=== PATIENT | male | born 1975 | race Hispanic/Latino ===

== ENCOUNTER 2016-08-12 13:51 | Emergency (ER) | payer BC ==
[2016-08-12 14:17] VITALS: BP 111/73
[2016-08-12 17:47] LABS: Hematocrit 43.5 % (35.5-45.6); Hemoglobin 14.5 gm/dl (11.8-15.2); Mean Corpuscular HGB Conc 33 % (32-34); Mean Corpuscular Hemoglobin 30 pg (28-32); Mean Corpuscular Volume 90 fl (84-94); Platelet Count 134 K/mm3 (140-440); Red Blood Count 4.83 M/mm3 (3.65-5.03); Red Cell Distribution Width 13.7 % (13.2-15.2); White Blood Count 7.6 K/mm3 (4.5-11.0)
--- NOTE | 2016-08-12 19:19 | Emergency Department Report ---
ED Fever HPI - General Chief Complaint: Fever Stated Complaint: FEVER Time Seen by Provider: 08/12/16 17:23 Source: patient, RN notes reviewed Exam Limitations: no limitations - History of Present Illness Initial Comments: Patient presents with complaint of headache and fever off and on 2 days. He states his headache and fever started after eating at [employer] on Friday. Patient also complains of a sore throat and dry cough. He states he has been taking Tylenol. Timing/Duration: intermittent Fever Severity/Quality: greater than 100.5 F (admits to 101) Associated Symptoms: cough (mild), headache, sore throat ED Review of Systems ROS: Stated complaint: FEVER Other details as noted in HPI Constitutional: fever. denies: chills Eyes: denies: eye pain, eye discharge, vision change ENT: throat pain. denies: ear pain Respiratory: cough (mild). denies: shortness of breath, wheezing Cardiovascular: denies: chest pain, palpitations Endocrine: no symptoms reported Gastrointestinal: denies: abdominal pain, nausea, diarrhea Genitourinary: denies: urgency, dysuria Musculoskeletal: denies: back pain, joint swelling, arthralgia Skin: denies: rash, lesions Neurological: headache. denies: weakness, paresthesias ED Past Medical Hx - Past Medical History Previous Medical History?: No - Surgical History Past Surgical History?: No - Social History Smoking Status: Never Smoker Substance Use Type: None - Medications Home Medications: Home Medications Medication Instructions Recorded Confirmed Last Taken Type Ibuprofen [Motrin 800 MG tab] 800 mg PO BID PRN #14 tablet 08/12/16 Unknown Rx ED Physical Exam - General Limitations: No Limitations General appearance: alert, in no apparent distress - Head Head exam: Present: atraumatic, normocephalic - Eye Eye exam: Present: normal appearance, PERRL, EOMI - ENT ENT exam: Present: mucous membranes moist, TM's normal bilaterally - Expanded ENT Exam Expanded Mouth exam: Present: normal external inspection Teeth exam: Present: normal inspection Throat exam: Positive: normal inspection - Neck Neck exam: Present: normal inspection, full ROM, lymphadenopathy - Respiratory Respiratory exam: Present: normal lung sounds bilaterally. Absent: respiratory distress - Cardiovascular Cardiovascular Exam: Present: regular rate, normal rhythm. Absent: systolic murmur, diastolic murmur, rubs, gallop - GI/Abdominal GI/Abdominal exam: Present: soft, normal bowel sounds - Extremities Exam Extremities exam: Present: normal inspection, full ROM - Back Exam Back exam: Present: normal inspection, full ROM - Neurological Exam Neurological exam: Present: alert, oriented X3 - Psychiatric Psychiatric exam: Present: normal affect, normal mood - Skin Skin exam: Present: warm, dry, intact, normal color. Absent: rash - Other Other exam information: BMI low ED Course Vital Signs 08/12/16 14:14 Temperature 98.7 F Pulse Rate 88 Respiratory 16 Rate Blood Pressure 111/73 O2 Sat by Pulse 100 Oximetry ED Medical Decision Making - Lab Data Result diagrams: 08/12/16 17:41 08/12/16 19:18 - Medical Decision Making Patient presents with headache and fever off and on 2 days. He states he started these symptoms after eating at a fast food restaurant called [employer]. He does admit to sore throat and dry cough. CBC, and hepatitis panel is negative. This appears to be a viral syndrome. I will give him ibuprofen 800 mg twice a day. I will advise him to follow up with primary care physician if symptoms do not resolve. - Differential Diagnosis common cold, hepatitis a, uri Critical Care Time: No Critical care attestation.: If time is entered above; I have spent that time in minutes in the direct care of this critically ill patient, excluding procedure time. ED Disposition Clinical Impression: Viral syndrome Disposition: DISCHARGED TO HOME OR SELFCARE Is pt being admited?: No Does the pt Need Aspirin: No Condition: Stable Instructions: Viral Syndrome (ED) Prescriptions: Ibuprofen [Motrin 800 MG tab] 800 mg PO BID PRN #14 tablet PRN Reason: fever, headache Forms: Work/School Release Form(ED) Time of Disposition: 20:24
[2016-08-12 19:28] LABS: Basophils % (Manual) 0 % (0.0-1.8); Blastocytes % (Manual) 0 %; Eosinophils % (Manual) 0 % (0.0-4.3)
[2016-08-12 19:30] LABS: Anisocytosis 1+; Diff Status Complete; Platelet Estimate Consistent w Auto
[2016-08-12 19:55] LABS: Alanine Aminotransferase 15 units/L (7-56); Albumin 4.7 g/dL (3.9-5); Albumin/Globulin Ratio 1.5 %; Alkaline Phosphatase 49 units/L (35-129); Bilirubin,Total 0.4 mg/dL (0.1-1.2); Blood Urea Nitrogen 8 mg/dL (9-20); Calcium 9.5 mg/dL (8.4-10.2); Carbon Dioxide 28 mmol/L (22-30); Chloride 98.2 mmol/L (98-107); Glucose 92 mg/dL (75-100); Potassium 4.4 mmol/L (3.6-5.0); Sodium 139 mmol/L (137-145); Total Protein 7.8 g/dL (6.3-8.2)
[2016-08-12 20:29] LABS: Anion Gap 17 mmol/L
== END 2016-08-12 20:29 | disposition home or self-care (01) ==
LOC: ED 13:51
DX: B34.9 Viral infection, unspecified (principal)
CPT/HCPCS: 36415; 80053; 80074; 85007; 85025; 87400; 99283

== ENCOUNTER 2016-11-01 01:46 | Emergency (ER) | payer BC ==
[2016-11-01] MEDS ORDERED: TYLENOL ONE (02:10)
[2016-11-01] MEDS ORDERED: MOTRIN PO ONE ×2 (02:31→02:50)
[2016-11-01] MEDS ORDERED: TYLENOL PO ONE (02:50)
[2016-11-01 03:19] LABS: BUN/Creatinine Ratio 18.75; Blood Urea Nitrogen 15 mg/dL (9-20); Calcium 9.7 mg/dL (8.4-10.2); Carbon Dioxide 26 mmol/L (22-30); Glucose 118 mg/dL (75-100); Magnesium 2.1 mg/dL (1.7-2.3)
[2016-11-01 03:20] LABS: Anion Gap 15 mmol/L; Potassium 4.3 mmol/L (3.6-5.0); Sodium 140 mmol/L (137-145)
[2016-11-01 03:29] LABS: Eosinophils % (Auto) 2.9 % (0.0-4.3); Hemoglobin 13.7 gm/dl (11.8-15.2); Mean Corpuscular HGB Conc 33 % (32-34); Mean Corpuscular Hemoglobin 30 pg (28-32); Mean Corpuscular Volume 89 fl (84-94); Platelet Count 166 K/mm3 (140-440); Red Blood Count 4.61 M/mm3 (3.65-5.03); Red Cell Distribution Width 13.4 % (13.2-15.2)
[2016-11-01 07:35] VITALS: BP 101/66
--- NOTE | 2016-11-01 08:15 | Emergency Department Report ---
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 Denies any direct trauma no chest pain no shortness of breath no palpitations no nausea no vomiting. No rash reported by patient. Patient is awake alert and oriented 3 does not appear in acute distress appears calm states that Motrin given in triage is significantly helped his pain. Patient does not appear short of breath no wheezing or stridor on exam. Patient states that pain felt slightly spastic in his right upper shoulder region. ED Review of Systems ROS: Stated complaint: BACK PAIN Other details as noted in HPI ED Past Medical Hx - Past Medical History Previous Medical History?: Yes Additional medical history: Back injury from a fall years ago - Surgical History Past Surgical History?: No - Social History Smoking Status: Never Smoker Substance Use Type: None - Medications Home Medications: Home Medications Medication Instructions Recorded Confirmed Last Taken Type Ibuprofen [Motrin 800 MG tab] 800 mg PO BID PRN #14 tablet 08/12/16 Unknown Rx Cyclobenzaprine [Flexeril] 10 mg PO TID PRN #12 tablet 11/01/16 Unknown Rx Naproxen [Naprosyn TAB] 500 mg PO BID PRN #20 tablet 11/01/16 Unknown Rx Upper Extremity Exam - Exam General: Vital signs noted. No distress. Alert and acting appropriately. Head and Torso: No HEENT Abnormality, No Neck Tenderness, No Chest/Lungs Abnormality, No Abdominal Tenderness, No Back Tenderness Shoulder Exam: Yes Shoulder Tenderness (pain in posterior upper right trapezius region on deep palpation of muscle.), Yes Normal Range of Motion in Shoulder ( range of motion right shoulder fully intact flexion extension abduction and abduction and internal and external rotation), No Clavicle Tenderness, No Shoulder Deformity, No AC Joint Tenderness Arm Exam: No Arm/Humerus Tenderness, No Arm Deformity Elbow: No Elbow Tenderness, No Normal Range of Motion in Elbow, No Elbow Deformity Forearm: No Forearm Tenderness, No Forearm Deformity, No Pain with Pronation, No Pain with Supination Wrist: Yes Normal ROM in Wrist, No Wrist Tenderness, No Wrist Deformity, No Snuffbox Tenderness, No Pain with Axial Thumb Compression Hand: Yes Normal ROM in Digit(s), No Hand Tenderness, No Hand Deformity, No Digit Tenderness, No Digit(s) Deformity, No Tendon Dysfunction CMS Exam: Yes Normal Distal Pulses (normal brachial radial pulses on palpation, capillary refill less than 1 second every digit), No Broken Skin, No Normal Capillary Refill, No Normal Distal Sensation Front/Back of Body, Lg (Color): 1 - Reproducible mild tenderness here on deep palpation ED Course Vital Signs 11/01/16 11/01/16 02:36 07:33 Temperature 97.4 F L 97.8 F Pulse Rate 68 63 Respiratory 18 18 Rate Blood Pressure 117/69 Blood Pressure 117/69 101/66 [Right] O2 Sat by Pulse 100 95 Oximetry ED Medical Decision Making - Lab Data Result diagrams: 11/01/16 02:48 11/01/16 02:48 - Medical Decision Making A/P: Musculoskeletal right upper trapezius pain reproducible with movement 1-naproxen and Flexeril when necessary 2-PRIMARY care doctor follow-up 3-lesion is in no distress no associated chest pain diaphoresis shortness of breath or palpitations whatsoever no rash and skin and is reproducible with movement it is musculoskeletal in nature. - Critical care attestation.: If time is entered above; I have spent that time in minutes in the direct care of this critically ill patient, excluding procedure time. ED Disposition Clinical Impression: Trapezius muscle strain Qualifiers: Encounter type: initial encounter Laterality: right Qualified Code(s): S46.811A - Strain of other muscles, fascia and tendons at shoulder and upper arm level, right arm, initial encounter Disposition: DISCHARGED TO HOME OR SELFCARE Is pt being admited?: No Does the pt Need Aspirin: No Condition: Stable Instructions: Muscle Strain (ED), Arthralgia (ED) Prescriptions: Cyclobenzaprine [Flexeril] 10 mg PO TID PRN #12 tablet PRN Reason: Muscle Spasm Naproxen [Naprosyn TAB] 500 mg PO BID PRN #20 tablet PRN Reason: Pain Referrals: PASQUALE MAURO MD [Staff Physician] - 3-5 Days [facility] [Provider Group] - 3-5 Days [facility] [Outside] - 3-5 Days Time of Disposition: 08:26
== END 2016-11-01 08:52 | disposition home or self-care (01) ==
LOC: ED 01:46
DX: S46.811A Strain of other muscles, fascia and tendons at shoulder and upper arm level, right arm, initial encounter (principal); X50.0XXA Overexertion from strenuous movement or load, initial encounter; Y93.89 Activity, other specified; Y99.9 Unspecified external cause status; Y92.89 Other specified places as the place of occurrence of the external cause
CPT/HCPCS: 36415; 80048; 83735; 85025; 99283

== ENCOUNTER 2020-07-02 22:16 | Emergency (ER) | payer BC ==
--- NOTE | 2020-07-03 00:48 | XRay Report ---
RIGHT FOOT RADIOGRAPH, 3 VIEWS INDICATION / CLINICAL INFORMATION: injury COMPARISON: None available. FINDINGS: BONES / JOINT(S): No acute displaced fracture or subluxation. No significant arthritis. SOFT TISSUES: No significant abnormality. ADDITIONAL FINDINGS: None. Signer Name: Shira Vargas MD Signed: 07/03/2020 12:43 AM Workstation Name: [id number]
[2020-07-03] MEDS ORDERED: ACETAMINOPHEN 325 MG TAB PO ONE (02:02)
[2020-07-03] MEDS ORDERED: IBUPROFEN 600 MG TAB PO ONE (02:02)
--- NOTE | 2020-07-03 02:36 | Emergency Department Report ---
ED Lower Extremity HPI - General Chief Complaint: Extremity Injury, Lower Stated Complaint: RIGHT FOOT PAIN Source: patient Mode of arrival: Ambulatory Limitations: No Limitations - History of Present Illness Initial Comments: Patient is a 45-year-old white male with no past medical history who presents to the ED with complaint of acute onset persistent severe right foot pain on the right lateral side after he accidentally kicked a wooden door frame about 3 hours ago when a phone rang and startled him while he was asleep. Patient states that the pain is worse with ambulation or palpation of the right foot. Patient denies loss of consciousness, nausea, vomiting, change in vision, knee pain, numbness and tingling or weakness of right leg, dizziness, syncope, back pain, chest pain or shortness of breath MD Complaint: foot injury (Right foot pain) -: Sudden, hour(s) (3) Injury: Foot: Right (Pain) Type of Injury: blunt Place: home Severity: severe Severity scale (0 -10): 7 Improves With: nothing Worsens With: weight bearing, movement, palpation Context: direct blow (Accidentally kicked a door frame with the right foot) Associated Symptoms: able to partially bear weight - Related Data Previous Rx's Medication Instructions Recorded Last Taken Type Naproxen [Naprosyn TAB] 500 mg PO BID PRN #20 tablet 11/01/16 Unknown Rx Cyclobenzaprine [Flexeril 10 MG 10 mg PO TID PRN #12 tablet 07/03/20 Unknown Rx TAB] Ibuprofen [Motrin 800 MG tab] 800 mg PO BID PRN #24 tablet 07/03/20 Unknown Rx Allergies Allergy/AdvReac Type Severity Reaction Status Date / Time No Known Allergies Allergy Unverified 08/12/16 14:14 ED Review of Systems ROS: Stated complaint: RIGHT FOOT PAIN Other details as noted in HPI Constitutional: denies: chills, fever Eyes: denies: eye pain, eye discharge, vision change ENT: denies: ear pain, throat pain Respiratory: denies: cough, shortness of breath, wheezing Cardiovascular: denies: chest pain, palpitations Endocrine: no symptoms reported Gastrointestinal: denies: abdominal pain, nausea, diarrhea Genitourinary: denies: urgency, dysuria Musculoskeletal: joint swelling (Mild swelling of the lateral right foot), arthralgia (Right foot pain). denies: back pain Skin: denies: rash, lesions Neurological: denies: headache, weakness, paresthesias Psychiatric: denies: anxiety, depression Hematological/Lymphatic: denies: easy bleeding, easy bruising ED Past Medical Hx - Past Medical History Previous Medical History?: No Additional medical history: Back injury from a fall years ago - Surgical History Past Surgical History?: No - Social History Smoking Status: Never Smoker Substance Use Type: None - Medications Home Medications: Home Medications Medication Instructions Recorded Confirmed Last Taken Type Naproxen [Naprosyn TAB] 500 mg PO BID PRN #20 tablet 11/01/16 Unknown Rx Cyclobenzaprine [Flexeril 10 MG 10 mg PO TID PRN #12 tablet 07/03/20 Unknown Rx TAB] Ibuprofen [Motrin 800 MG tab] 800 mg PO BID PRN #24 tablet 07/03/20 Unknown Rx ED Physical Exam - General Limitations: No Limitations General appearance: alert, in no apparent distress - Head Head exam: Present: atraumatic, normocephalic, normal inspection - Eye Eye exam: Present: normal appearance, PERRL, EOMI Pupils: Present: normal accommodation - ENT ENT exam: Present: normal exam, normal orophraynx, mucous membranes moist, TM's normal bilaterally, normal external ear exam - Neck Neck exam: Present: normal inspection, full ROM - Respiratory Respiratory exam: Present: normal lung sounds bilaterally. Absent: respiratory distress, wheezes, rales, rhonchi, chest wall tenderness, accessory muscle use, decreased breath sounds - Cardiovascular Cardiovascular Exam: Present: regular rate, normal rhythm, normal heart sounds. Absent: systolic murmur, diastolic murmur, rubs, gallop - GI/Abdominal GI/Abdominal exam: Present: soft, normal bowel sounds. Absent: tenderness, guarding, rebound, hyperactive bowel sounds, hypoactive bowel sounds - Extremities Exam Extremities exam: Present: normal inspection, full ROM, tenderness (Palpable lateral right foot tenderness with mild swelling), normal capillary refill, joint swelling (Mild swelling of right lateral foot). Absent: calf tenderness - Back Exam Back exam: Present: normal inspection, full ROM. Absent: tenderness, CVA tenderness (R), CVA tenderness (L), muscle spasm, paraspinal tenderness, vertebral tenderness - Neurological Exam Neurological exam: Present: alert, oriented X3, CN II-XII intact, normal gait, reflexes normal - Psychiatric Psychiatric exam: Present: normal affect, normal mood - Skin Skin exam: Present: warm, dry, intact, normal color. Absent: rash ED Course Vital Signs 07/03/20 00:01 Temperature 97.9 F Pulse Rate 64 Respiratory 18 Rate Blood Pressure 101/66 O2 Sat by Pulse 100 Oximetry ED Lower Extremity MDM - Radiology Data Radiology results: report reviewed, image reviewed Findings [facility] [address] [place] [address] XRay Report Signed Patient: SAMI CAMPOS MR#: [id number] : 1975 Acct:[id number] Age/Sex: 45 / M ADM Date: 07/02/20 Loc: ED Attending Dr: Ordering Physician: MADELINE GARCÍA MD Date of Service: 07/03/20 Procedure(s): XR foot 3+V RT Accession Number(s): [id number] cc: ED MD RICKY Fluoro Time In Minutes: RIGHT FOOT RADIOGRAPH, 3 VIEWS INDICATION / CLINICAL INFORMATION: injury COMPARISON: None available. FINDINGS: BONES / JOINT(S): No acute displaced fracture or subluxation. No significant arthritis. SOFT TISSUES: No significant abnormality. ADDITIONAL FINDINGS: None. Signer Name: Shira Vargas MD Signed: 07/03/2020 12:43 AM Workstation Name: [id number] Transcribed By: [facility] Dictated By: Shira Vargas MD Electronically Authenticated By: Shira Vargas MD Signed Date/Time: 07/03/2042 DD/ TD/TT: - Medical Decision Making This is a 45-year-old white male with no past medical history who presents to the ED with complaint of acute onset persistent severe right foot pain on the right lateral side after he accidentally kicked a wooden door frame about 3 hours ago when a phone rang and startled him while he was asleep. Patient states that the pain is worse with ambulation or palpation of the right foot. In the ED, patient is alert and oriented x3 and is not in distress. Patient was treated for pain in the ED and right foot x-ray shows no acute fractures or subluxations. Patient was discharged home on pain medications and advised follow-up with his primary care physician in 5 to 7 days for reevaluation or return to the ED immediately if symptoms get worse. - Differential Diagnosis Foot fracture; foot sprain; foot contusion; muscle strain of right foot Critical care attestation.: If time is entered above; I have spent that time in minutes in the direct care of this critically ill patient, excluding procedure time. ED Disposition Clinical Impression: Contusion of right foot including toes Qualifiers: Encounter type: initial encounter Qualified Code(s): S90.31XA - Contusion of right foot, initial encounter; S90.121A - Contusion of right lesser toe(s) without damage to nail, initial encounter Sprain of right foot Qualifiers: Encounter type: initial encounter Qualified Code(s): S93.601A - Unspecified sprain of right foot, initial encounter Disposition: TO HOME OR SELFCARE Is pt being admited?: No Does the pt Need Aspirin: No Condition: Stable Instructions: Foot Contusion, [id number], Crush Injury of the Foot, [id number] Additional Instructions: The right foot x-ray shows no acute fractures or subluxations. The injuries of the right foot is likely due to muscle strain, musculoskeletal injuries or contusion of soft tissues of the right foot. Therefore take medication with food, drink plenty of fluids and follow-up with your primary care physician in 5 to 7 days for reevaluation. Return to the ED immediately if symptoms get worse. Prescriptions: Cyclobenzaprine [Flexeril 10 MG TAB] 10 mg PO TID PRN #12 tablet PRN Reason: Muscle Spasm Ibuprofen [Motrin 800 MG tab] 800 mg PO BID PRN #24 tablet PRN Reason: Pain , Severe (7-10) Referrals: PRIMARY CARE, [Primary Care Provider] - 3-5 Days [facility] [Provider Group] - 3-5 Days Forms: Work/School Release Form(ED) Time of Disposition: 02:40 Print Language: MOZAMBICAN
[2020-07-03 03:34] VITALS: BP 116/70
== END 2020-07-03 03:07 | disposition home or self-care (01) ==
LOC: ED 22:16
DX: S93.601A Unspecified sprain of right foot, initial encounter (principal); Z79.1 Long term (current) use of non-steroidal anti-inflammatories (NSAID); Z79.899 Other long term (current) drug therapy; W22.8XXA Striking against or struck by other objects, initial encounter; Y93.89 Activity, other specified; Y92.009 Unspecified place in unspecified non-institutional (private) residence as the place of occurrence of the external cause; Y99.8 Other external cause status